=== PATIENT | male | born 1980 | race Caucasian/White ===

== ENCOUNTER → 2018-04-03 16:19 | Outpatient (CLI) | payer OTHER, SELFPAY ==
[2018-04-03 16:53] LABS: Appearance Urine UA CLEAR; Bilirubin Urine UA NEGATIVE (NEGATIVE); Color Urine UA YELLOW; Glucose Urine UA NEGATIVE (Normal); Ketones Urine UA NEGATIVE (NEGATIVE); Leukocyte Esterase Urine UA NEGATIVE (NEGATIVE); Nitrite Urine UA Negative (Negative); Occult Blood Urine UA NEGATIVE (Negative); Protein Urine UA 1+ (Negative); Urobilinogen Urine UA 0.2 E.U./dL (0.2)
[2018-04-03 19:15] LABS: Urine N gonorrhoeae NOT DETECTED
[2018-04-03 20:10] LABS: Urine Chlamydia NOT DETECTED
[2018-04-04 10:45] LABS: Creatinine Urine Random 107.5 mg/dL
[2018-04-04 11:06] LABS: Microalbumi Creatinin Ratio Ur 318.1 ug/mg CR (<30); Microalbumin Urine Random 34.2 mg/dL (0-1.6)
== END ==
PROVIDERS: Visit Provider Internal Medicine
DX: N50.82 Scrotal pain (principal); N50.89 Other specified disorders of the male genital organs; I10 Essential (primary) hypertension
CPT/HCPCS: 81003; 82043; 82570; 87491; 87591

== ENCOUNTER → 2018-04-18 07:01 | Outpatient (CLI) | payer OTHER, SELFPAY ==
--- NOTE | 2018-04-18 07:03 | DI.US.S_ITS ---
PROCEDURE: US SCROTUM INDICATIONS: INTERMITTANT BILATERAL TESTICULAR PAIN TECHNIQUE: Real-time scanning was performed of the scrotum and testicles, with image documentation. Color and pulse Doppler interrogation was performed of both testicles. COMPARISON: None. FINDINGS: Right: Testicle is normal in size at 4.7 x 2.5 x 3.0 cm, and homogenous in echotexture. Epididymis is normal in overall size and morphology. No hydrocele or varicoceles. Overlying scrotal skin is normal in thickness. Left: Testicle is normal in size at 5.2 x 2.4 x 2.8 cm, and homogeneous in echotexture. Epididymis is normal in overall size and morphology. No hydrocele or varicoceles. Overlying scrotal skin is normal in thickness. Doppler: Color and pulse Doppler demonstrate normal and symmetric arterial flow in both testicles. IMPRESSION: Normal exam. Dictated by: [facility] Interpreted: Kaylene Quintanilla MD on 04/18/2018 at 8:27 Approved by: Kaylene Quintanilla MD, PhD on 04/18/2018 at 12:03
== END ==
PROVIDERS: PCP Family Medicine; Visit Provider Internal Medicine
DX: N50.811 Right testicular pain (principal); N50.812 Left testicular pain
CPT/HCPCS: 76870